=== PATIENT | female | born 1985 | race Caucasian/White ===

== ENCOUNTER 2017-02-10 13:38 | Day surgery (SDC) | payer OTHER ==
[2017-02-10] VITALS (8 sets, daily range): BP systolic 124–135; BP diastolic 67–85; PULSE 55–102; RESP 14–16; Ht 157.5 cm; Wt 71.8 kg
[~2017-02-10] VITALS: Ht 157.5 cm; Wt 71.8 kg
[~2017-02-10 13:38] MED LIST: CEFAZOLIN 2 GM/50 ML (PMX) 50 ML IVPB ONE; SOD CHLORIDE 0.9% 1,000 ML IV SCH
[2017-02-10] MEDS ORDERED: ROCURONIUM 50 MG INJ ONE (14:45)
[2017-02-10] MEDS ORDERED: PROPOFOL 20 ML ONE (14:45)
[2017-02-10] MEDS ORDERED: FENTAnyl 50 MCG/ML VIAL ONE (14:46)
[2017-02-10] MEDS ORDERED: ROPIVACAINE 0.5 % 30 ML VIAL ONE (14:46)
[2017-02-10] MEDS ORDERED: MIDAZOLAM 1 MG/ML 2 ML INJ ONE (14:46)
[2017-02-10] MEDS ORDERED: BUPIVACAINE 0.25% (MPF) 30 ML INJ ONE (16:18)
[2017-02-10] MEDS ORDERED: LABETALOL HCL 20MG INJ IV PRN (17:00)
[2017-02-10] MEDS ORDERED: DIPHENHYDRAMINE 50 MG INJ IV PRN (17:00)
[2017-02-10] MEDS ORDERED: morphine (1 MG/ML) 10ML SYRINGE IV PRN ×3 (17:00)
[2017-02-10] MEDS ORDERED: hydrALAzine 20 MG INJ IV PRN (17:00)
[2017-02-10] MEDS ORDERED: MEPERIDINE 25 MG INJ IV PRN (17:00)
[2017-02-10] MEDS ORDERED: METOCLOPRAMIDE 10 MG INJ IV PRN (17:00)
[2017-02-10] MEDS ORDERED: EPHEDrine SULFATE 50 MG/5 ML SYG IV PRN (17:00)
[2017-02-10] MEDS ORDERED: ONDANSETRON 4 MG INJ IV PRN (17:00)
[2017-02-10] MEDS ORDERED: HYDROmorphONE (0.2 MG/ML) 10ML SYG IV PRN ×3 (17:00)
[2017-02-10] MEDS ORDERED: NEOSTIGMINE 3 MG/3 ML SYRINGE ONE (17:03)
[2017-02-10] MEDS ORDERED: GLYCOPYRROLATE 0.4 MG INJ ONE (17:03)
[2017-02-10] MEDS ORDERED: METOCLOPRAMIDE 10 MG INJ ONE (17:03)
[2017-02-10] MEDS ORDERED: ONDANSETRON 4 MG INJ ONE (17:03)
[2017-02-10] MEDS ORDERED: KETOROLAC 30 MG INJ ONE (17:03)
[2017-02-10] MEDS ORDERED: DEXAMETHASONE 4 MG/ML 1 ML INJ ONE (17:03)
--- NOTE | 2017-02-10 17:11 | OPR ---
Date/Time of Note Date/Time of Note DATE: 02/10/17 TIME: 17:08 Operative Report Procedure Date: Feb 10, 2017 Preoperative Diagnosis symptomatic gallstones Postoperative Diagnosis same Operation Performed lap sharita therapeutic injection [place] cpt [id number] Surgeon: Disha BRADY Specimens gallbladder Procedure Description Patient is taken to the OR prepped and draped in usual sterile fashion. Surgical time was performed IV antibiotics are given. Supraumbilical midline incision is made with a 15 blade. Dissection cautery was carried out to the fascia. 0 Vicryl stay sutures were placed in either side of midline. Midline is divided. Balloon Mejia trocar is introduced pneumoperitoneum is established. Mid epigastric 12 mm optical trocar is placed under direct visualization right upper quadrant right upper flank 5 mm optical chores are placed under direct visualization. Upon initial inspection there is adhesions to the gallbladder were taken down. The cystic duct and cystic artery are difficult identified and divided using a 35 mm Double Spring vascular stapler. Gallbladder is taken of the gallbladder bed. There is good hemostasis. Staple line is reinforced with clips. Gallbladder is retrieved using an Endo Catch bag. Ports removed under direct visualization. 0 Vicryl stay sutures were tied down. Skin is closed using skin ladarius. Local anesthesia injected to all incision sites. Dry dressings applied. Disha BRADY Feb 10, 2017 17:11
[2017-02-10] MEDS ORDERED: HYDROCODONE/APAP (5/325) TAB PO ONE (17:30)
== END 2017-02-10 18:40 | disposition home or self-care (01) ==
LOC: SDS 13:38
PROVIDERS: ATTEND Surgery
DX: K80.10 Calculus of gallbladder with chronic cholecystitis without obstruction (principal)
CPT/HCPCS: 47562; 84703; 88304; J1100; J1885; J2250; J2405; J2710; J2765; J2795; J3010; Z7512; Z7610; J1170; J2175